=== PATIENT | female | born 2005 | race African-American/Black ===

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

== ENCOUNTER 2023-02-28 08:20 | Emergency (ER) | payer OTHER, SELFPAY ==
[2023-02-28 08:35] VITALS: BP 125/76; PULSE 90; RESP 16; TEMP 36.7; O2SAT 100
--- NOTE | 2023-02-28 08:42 | ED.NAVMDI ---
HPI - Nausea/Vomiting/Diarrhea General Chief complaint: Nausea/Vomiting/Diarrhea Stated complaint: Vomiting/Diarrhea Time Seen by Provider: 02/28/23 08:44 Source: patient and RN notes reviewed Mode of arrival: ambulatory Limitations: no limitations History of Present Illness HPI Narrative: 17-year-old female presents with concern for vomiting that started around 0200. She reports she has vomited about 7 times. She denies diarrhea. Reports her last normal bowel movement was yesterday. She reports abdominal pain. She denies sore throat, nasal congestion, rhinorrhea, fever, body aches, chills. Reports she feels hot. She denies dysuria, frequency, urgency, flank pain MD elicited complaint: nausea and vomiting Related Data Home Medications Medication Instructions Recorded Confirmed L norgest/E estradiol-E estrad 1 tablet PO DAILY 08/26/22 02/28/23 0.15 mg-30 mcg (84)/10 mcg(7) tabs,3mos ([facility]) Allergies Allergy/AdvReac Type Severity Reaction Status Date / Time No Known Allergies Allergy Mild Verified 02/28/23 08:32 Review of Systems Review of Systems: CONSTITUTIONAL: Reports malaise, feeling hot ENT: Denies rhinorrhea, congestion, sinus pain, otalgia or sore throat. CARDIOVASCULAR: Denies chest pain, palpitations, or edema. RESPIRATORY: Denies cough or dyspnea. GASTROINTESTINAL: Reports abdominal pain, nausea, vomiting. Denies diarrhea, bloody, or mucous stools. GENITOURINARY: Denies dysuria or hematuria. MUSCULOSKELETAL: Denies myalgia. NEUROLOGIC: Denies headache. All systems reviewed & are unremarkable except as noted in HPI and below PMFSH Past Medical History Medical History No active medical problems Family History Family History Other No acute medical problems Social History Social History Living arrangements: with family Occupation/Education: student Gender identity (if verbalized by the patient): Female Comments At time of signature, agree with nursing past medical, surgical, social and family history. There is no relevant family history pertinent to the presenting complaint Exam Narrative: GENERAL: Well-appearing, well-nourished, and in no acute distress. HEAD: Normocephalic, atraumatic. EYES: PERRLA, conjunctivae clear, and EOMI. ENT: Nares clear, turbinates pink, no rhinorrhea or epistaxis. Mucous membranes moist. Oropharynx without edema, erythema, or lesions. Tonsils not enlarged and without exudate. NECK: Supple. No lymphadenopathy CHEST: Speaks in full sentences. No respiratory distress. HEART: Regular rate and rhythm. ABDOMEN: Soft, obese, nondistended,minimal tenderness. No guarding, rebound tenderness, or rigidity. No pulsatile masses. Bowel sounds present in all four quadrants. No organomegaly. Negative Nichols?s sign. No periumbilical tenderness. No Supra public tenderness or distension. No hernia noted. No scars or surface trauma. SKIN: Warm, dry, no rash. NEURO: Alert and oriented x3. PSYCH: Normal mood and affect Course Course Emergency Course: Patient is aware of diagnosis, understands and agrees to treatment plan. Anticipatory guidance given. Patient agrees to follow-up as directed and is aware of reasons to seek care at the emergency department. Portions of this record may have been created with voice recognition software Level of Care: Express Care Visit Vital Signs Vital signs: Vital Signs Temperature 98.1 F 02/28/23 08:35 Pulse Rate 90 02/28/23 08:35 Respiratory Rate 16 02/28/23 08:35 Blood Pressure 125/76 02/28/23 08:35 Pulse Oximetry 100 02/28/23 08:35 Oxygen Delivery Room Air 02/28/23 08:35 Temperature 98.1 F 02/28/23 08:35 Pulse Rate 90 02/28/23 08:35 Respiratory Rate 16 02/28/23 08:35 Blood Pressure 125/76 02/28/23
== END 2023-02-28 09:30 | disposition home or self-care (01) ==
PROVIDERS: Emergency Provider Nurse Practitioner; PCP Family Medicine
DX: N39.0 Urinary tract infection, site not specified (principal); R11.2 Nausea with vomiting, unspecified
CPT/HCPCS: 81003; 81025; 87086; 87088; 87804; 99213; G0463

== ENCOUNTER 2023-03-21 16:09 | Emergency (ER) | payer OTHER, SELFPAY ==
--- NOTE | 2023-03-21 16:12 | ED.FEMALEGU ---
HPI - Female Genitourinary General Chief complaint: Urogenital-Female Stated complaint: UTI Time Seen by Provider: 03/21/23 16:18 Source: patient and RN notes reviewed Mode of arrival: ambulatory Limitations: no limitations History of Present Illness HPI Narrative: 17-year-old female presents with concern for dysuria, frequency, lower abdominal discomfort that started today. She reports history of urinary tract infections with similar symptoms. She denies fever, aches, chills, sweats. Denies nausea, vomiting. She denies taking any medications for her symptoms. MD elicited complaint: UTI Related Data Home Medications Medication Instructions Recorded Confirmed L norgest/E estradiol-E estrad 1 tablet PO DAILY 08/26/22 02/28/23 0.15 mg-30 mcg (84)/10 mcg(7) tabs,3mos ([facility]) Allergies Allergy/AdvReac Type Severity Reaction Status Date / Time No Known Allergies Allergy Mild Verified 03/21/23 16:12 Review of Systems Review of Systems: CONSTITUTIONAL: Denies malaise, chills, sweats, or fever. CARDIOVASCULAR: Denies chest pain, palpitations, or edema. RESPIRATORY: Denies cough or dyspnea. GASTROINTESTINAL: Denies abdominal pain, nausea, vomiting, diarrhea GENITOURINARY: Reports dysuria, frequency, suprapubic pressure. Denies flank pain or hematuria. SKIN: Denies rash or itching. MUSCULOSKELETAL: Denies back pain or myalgia. All systems reviewed & are unremarkable except as noted in HPI and below PMFSH Past Medical History Medical History No active medical problems Family History Family History Other No acute medical problems Social History Social History Living arrangements: with family Occupation/Education: student Gender identity (if verbalized by the patient): Female Comments At time of signature, agree with nursing past medical, surgical, social and family history. There is no relevant family history pertinent to the presenting complaint Exam Narrative: GENERAL: Well-appearing, well-nourished, and in no acute distress. HEAD: Normocephalic. EYES: PERRLA, conjunctivae clear. NECK: Supple. No lymphadenopathy CHEST: Clear to auscultation. No respiratory distress. HEART: Regular rate and rhythm. ABDOMEN: Soft, nontender upon palpation, nondistended, normal active bowel sounds, no palpable or pulsatile masses, no guarding. No CVA tenderness SKIN: Warm, dry, no rash. NEURO: Alert and oriented x3. PSYCH: Normal mood and affect Course Course Emergency Course: Patient is aware of diagnosis, understands and agrees to treatment plan. Anticipatory guidance given. Patient agrees to follow-up as directed and is aware of reasons to seek care at the emergency department. Portions of this record may have been created with voice recognition software Level of Care: Express Care Visit Vital Signs Vital signs: Reviewed. MDM - Female Genitourinary MDM Narrative Medical decision making narrative: Exam findings and UA show no acute concerns or changes; patient is non-toxic appearing and is in no distress. Patient is appropriate for outpatient treatment and follow-up. Differential Diagnosis Differential diagnosis: Likely urinary tract infection and cystitis Critical Care Time Critical Care Time Critical Care Time: No Discharge Plan Discharge Clinical Impression: Urinary tract infection Patient Disposition: Home, Self-Care Condition: Stable Instructions: Antibiotic Form, Urinary Tract Infection in Women (ED) Additional Instructions: We will send a urine culture to the lab; if the culture identifies an organism that the prescribed antibiotic will not treat, you will receive a phone call from an urgent care staff member and an appropriate antibiotic will be prescribed. -Your symptoms should begi
--- NOTE | 2023-03-21 16:15 | PC.NURSE ---
in br to obtain ua spec.
[2023-03-21 16:22] VITALS: BP 149/97; PULSE 104; RESP 16; TEMP 36.5; O2SAT 100
== END 2023-03-21 16:29 | disposition home or self-care (01) ==
PROVIDERS: Emergency Provider Nurse Practitioner; PCP Family Medicine
DX: N39.0 Urinary tract infection, site not specified (principal)
CPT/HCPCS: 81003; 87086; 87088; 99213; G0463

== ENCOUNTER 2023-04-08 10:53 | Emergency (ER) | payer OTHER, SELFPAY ==
[2023-04-08 11:05] VITALS: BP 118/65; PULSE 87; RESP 16; TEMP 36.8; O2SAT 99
--- NOTE | 2023-04-08 11:07 | ED.FEMALEGU ---
HPI - Female Genitourinary General Chief complaint: Urogenital-Female Stated complaint: vaginal irritation Time Seen by Provider: 04/08/23 11:17 Source: patient and RN notes reviewed Mode of arrival: ambulatory Limitations: no limitations History of Present Illness HPI Narrative: 18-year-old female presented with complaint of vaginal irritation over the past 4 days. She states symptoms started as itching, then noticed burning at the end of urination, then vulvar swelling, and noticed red bumps to the labia. Denies change in sexual partner for one year. Denies dyspareunia, vaginal bleeding or change in discharge, hematuria, abdominal pain, flank pain, nausea, vomiting, fevers or chills. LMP , on oral BC. Related Data Home Medications Medication Instructions Recorded Confirmed L norgest/E estradiol-E estrad 1 tablet PO DAILY 08/26/22 04/08/23 0.15 mg-30 mcg (84)/10 mcg(7) tabs,3mos ([facility]) Allergies Allergy/AdvReac Type Severity Reaction Status Date / Time No Known Allergies Allergy Mild Verified 04/08/23 10:57 Review of Systems Review of Systems: CONSTITUTIONAL: Denies body aches, fever, chills, or sweats. CARDIOVASCULAR: Denies chest pain, palpitations, or edema. RESPIRATORY: Denies cough or dyspnea. GASTROINTESTINAL: Denies abdominal pain, nausea, vomiting, or diarrhea. GENITOURINARY: Reports dysuria, vaginal swelling and skin bumps denies discharge, vaginal bleeding, frequency, urgency, hematuria, flank pain SKIN: Denies rash, itching, or wounds. MUSCULOSKELETAL: Denies back pain or myalgia. [facility] Past Medical History Medical History No active medical problems Family History Family History Other No acute medical problems Social History Social History Living arrangements: with family Occupation/Education: student Gender identity (if verbalized by the patient): Female Comments At time of signature, I have reviewed and agree with nursing past medical, surgical, social and family history unless otherwise noted. Please see nursing chart for further information. There is no relevant family history pertinent to the presenting complaint Exam Narrative: GENERAL: Well-appearing and in no acute distress. ENT: Mucous membranes pink and moist. NECK: Normal AROM. Supple. CHEST: No respiratory distress. Clear to auscultation. HEART: Regular rate and rhythm. ABDOMEN: Soft, nontender, nondistended, normal active bowel sounds. No CVA tenderness : Vagina: swollen vaginal introitus, pink with white discharge. Patient unable to tolerate full advancement of speculum exam due to pain. Multiple nontender erythematous raised papules to external labia and right medial thigh. Right external labia with excoriated lesion approx 3mm diameter, tender. No bleeding, foreign body, laceration or vesicles. Chaperoned by Abida CAMPBELL; pt requested mother stay at bedside. SKIN: Warm, dry, no rash. NEURO: No focal deficits. Alert and oriented x3. Gait steady. PSYCH: Normal affect. Course Course Emergency Course: Patient is aware of diagnosis, understands and agrees to treatment plan. Anticipatory guidance given. Patient agrees to follow-up as directed and is aware of reasons to seek care at the emergency department. Portions of this record may have been created with voice recognition software Level of Care: Express Care Visit Vital Signs Vital signs: Vital Signs Temperature 98.2 F 04/08/23 11:05 Pulse Rate 87 04/08/23 11:05 Respiratory Rate 16 04/08/23 11:05 Blood Pressure 118/65 04/08/23 11:05 Pulse Oximetry 99 04/08/23 11:05 Oxygen Delivery Room Air 04/08/23 11:05 Temperature 98.2 F 04/08/23 11:05 Pulse Rate 87 04/08/23 11:05 Respiratory Rate 16 04/08/23 11:05 Blood Pressure 118/65 04/08/23 11
[2023-04-08 21:39] LABS: Trichomonas Vag PCR NOT DETECTED (NOT DETECTE)
[2023-04-10 13:52] LABS: Chlamydia trachomatis NOT DETECTED (NOT DETECTE); Neisseria gonorrhoeae PCR NOT DETECTED (NOT DETECTE)
== END 2023-04-08 12:05 | disposition home or self-care (01) ==
PROVIDERS: Emergency Provider Nurse Practitioner Family; PCP Family Medicine
DX: N76.0 Acute vaginitis (principal)
CPT/HCPCS: 81003; 87070; 87086; 87088; 87147; 87255; 87491; 87591; 87661; 99214; G0463